=== PATIENT | male | born 1960 | race Caucasian/White ===

== ENCOUNTER 2017-11-28 17:10 | Emergency (ER) | payer SELFPAY, OTHER | END 2017-11-28 19:13 | disposition left against medical advice (07) | LOC: E/R 17:10 | DX: Z53.21 Procedure and treatment not carried out due to patient leaving prior to being seen by health care provider (principal) ==

== ENCOUNTER 2018-01-22 04:27 | Emergency (ER) | payer OTHER ==
[2018-01-22 05:44] LABS: URINE BLOOD (Dip) POC 1+ (NEGATIVE); URINE GLUCOSE (Dip) POC Negative (NEGATIVE); URINE KETONES (Dip) POC Negative (NEGATIVE); URINE LEUKOCYTE EST (Dip) POC Negative (NEGATIVE); URINE NITRITE (Dip) POC Negative (NEGATIVE); URINE TOTAL PROTEIN POC Trace (NEGATIVE)
[2018-01-22 05:51] LABS: ADD MAN DIFF? NO
[2018-01-22 06:25] LABS: ABNORMAL IP MESSAGE 1; BASOPHILS % 0.9 % (0.0-2.0); EOSINOPHILS # 0.3 10^3/ul (0.0-0.5); EOSINOPHILS % 6.2 % (0.0-7.0); HEMATOCRIT 31.6 % (42.0-52.0); HEMOGLOBIN 10.9 g/dl (14.0-18.0); LYMPHOCYTES # 1.3 10^3/ul (0.8-2.9); LYMPHOCYTES % 29.6 % (15.0-51.0); MEAN CORPUSCULAR HEMOGLOBIN 36.2 pg (29.0-33.0); MEAN CORPUSCULAR HGB CONC 34.5 g/dl (32.0-37.0); MEAN PLATELET VOLUME 11.7 fl (7.4-10.4); MONOCYTE # 0.4 10^3/ul (0.3-0.9); MONOCYTES % 9.7 % (0.0-11.0); NEUTROPHIL # 2.3 10^3/ul (1.6-7.5); NEUTROPHILS % 53.4 % (39.0-77.0); PLATELET COUNT 91 10^3/UL (140-415); POSITIVE DIFF @See below; RED BLOOD COUNT 3.01 10^6/ul (4.70-6.10); RED CELL DISTRIBUTION WIDTH 14.9 % (11.5-14.5)
[2018-01-22 06:25] LABS: WHITE BLOOD COUNT 4.2 10^3/ul (4.8-10.8)
[2018-01-22 06:37] LABS: INR 1.67; PARTIAL THROMBOPLASTIN TIME 38.3 Sec (25.0-35.0); PT RATIO 1.6
[2018-01-22 06:40] LABS: ALANINE AMINOTRANSFERASE 66 IU/L (13-69); ALBUMIN 2.4 g/dl (3.3-4.9); ALKALINE PHOSPHATASE 321 IU/L (42-121); ANION GAP 8 (8-16); ASPARTATE AMINO TRANSFERASE 86 IU/L (15-46); BILIRUBIN,INDIRECT 1.7 mg/dl (0-1.1); BILIRUBIN,TOTAL 1.7 mg/dl (0.2-1.3); BLOOD UREA NITROGEN 16 mg/dl (7-20); CARBON DIOXIDE 26 mmol/L (21-31); CHLORIDE 110 mmol/L (97-110); CREATINE KINASE 199 IU/L (23-200); CREATININE 0.75 mg/dl (0.61-1.24); GLUCOSE 109 mg/dl (70-220); POTASSIUM 4.1 mmol/L (3.5-5.1); SODIUM 140 mmol/L (135-144); TOTAL PROTEIN 7.2 g/dl (6.1-8.1)
[2018-01-22 06:51] LABS: CK INDEX 1.2; CK-MB 2.37 ng/ml (0.0-2.4); TROPONIN-I < 0.012 ng/ml (0.000-0.120)
[2018-01-22] MEDS: FUROSEMIDE 20 MG INJ IV (07:26)
[2018-01-22 07:49] LABS: AMMONIA 52 umol/l (9-30)
[2018-01-22] MEDS: LACTULOSE 30ML CUP PO (09:25)
== END 2018-01-22 09:40 | disposition home or self-care (01) ==
LOC: E/R 04:27
DX: E72.20 Disorder of urea cycle metabolism, unspecified (principal); K74.60 Unspecified cirrhosis of liver; I10 Essential (primary) hypertension; E11.9 Type 2 diabetes mellitus without complications
CPT/HCPCS: 71045; 80053; 81003; 82140; 82550; 82553; 84484; 85025; 85610; 85730; 93005; 96374; 99285-25

== ENCOUNTER 2018-02-04 15:23 | Inpatient (IN) | payer OTHER ==
[2018-02-04 17:26] LABS: ADD MAN DIFF? NO
[2018-02-04 17:29] LABS: WHITE BLOOD COUNT 4.9 10^3/ul (4.8-10.8)
[2018-02-04 17:29] LABS: ABNORMAL IP MESSAGE 1; BASOPHIL # 0.1 10^3/ul (0.0-0.1); EOSINOPHILS # 0.3 10^3/ul (0.0-0.5); EOSINOPHILS % 6.5 % (0.0-7.0); HEMATOCRIT 31.3 % (42.0-52.0); HEMOGLOBIN 10.7 g/dl (14.0-18.0); LYMPHOCYTES % 20.2 % (15.0-51.0); MEAN CORPUSCULAR HEMOGLOBIN 36.3 pg (29.0-33.0); MEAN CORPUSCULAR HGB CONC 34.2 g/dl (32.0-37.0); MEAN CORPUSCULAR VOLUME 106.1 fl (82.0-101.0); MEAN PLATELET VOLUME 10.5 fl (7.4-10.4); MONOCYTE # 0.5 10^3/ul (0.3-0.9); MONOCYTES % 10.2 % (0.0-11.0); NEUTROPHILS % 61.5 % (39.0-77.0); PLATELET COUNT 90 10^3/UL (140-415); POSITIVE DIFF @See below; RED BLOOD COUNT 2.95 10^6/ul (4.70-6.10); RED CELL DISTRIBUTION WIDTH 14.6 % (11.5-14.5)
[2018-02-04 17:51] LABS: AMMONIA 96 umol/l (9-30)
[2018-02-04 17:53] LABS: ALANINE AMINOTRANSFERASE 62 IU/L (13-69); ALBUMIN 2.3 g/dl (3.3-4.9); ALKALINE PHOSPHATASE 303 IU/L (42-121); ANION GAP 6 (8-16); ASPARTATE AMINO TRANSFERASE 75 IU/L (15-46); BILIRUBIN,INDIRECT 1.8 mg/dl (0-1.1); BILIRUBIN,TOTAL 1.8 mg/dl (0.2-1.3); BLOOD UREA NITROGEN 14 mg/dl (7-20); CALCIUM 7.6 mg/dl (8.4-10.2); CARBON DIOXIDE 27 mmol/L (21-31); CHLORIDE 110 mmol/L (97-110); CREATININE 0.82 mg/dl (0.61-1.24); GLUCOSE 133 mg/dl (70-220); LIPASE 344 U/L (23-300); POTASSIUM 3.9 mmol/L (3.5-5.1); SODIUM 139 mmol/L (135-144); TOTAL PROTEIN 6.9 g/dl (6.1-8.1)
[2018-02-04 18:04] LABS: TROPONIN-I < 0.012 ng/ml (0.000-0.120)
[2018-02-04 18:12] LABS: ADD UMIC YES; UR ASCORBIC ACID NEGATIVE (NEGATIVE); UR BILIRUBIN (Dip) NEGATIVE (NEGATIVE); UR BLOOD (Dip) 2+ mg/dL (NEGATIVE); UR CLARITY CLEAR (CLEAR); UR COLOR AMBER (YELLOW); UR GLUCOSE (Dip) NEGATIVE (NEGATIVE); UR KETONES (Dip) NEGATIVE (NEGATIVE); UR LEUKOCYTE ESTERASE (Dip) NEGATIVE Leu/ul (NEGATIVE); UR NITRITE (Dip) NEGATIVE (NEGATIVE); UR RBC 14 /HPF (0-5); UR SPECIFIC GRAVITY (Dip) > 1.060 (1.003-1.030); UR TOTAL PROTEIN (Dip) NEGATIVE (NEGATIVE); UR UROBILINOGEN (Dip) 2+ mg/dL (NEGATIVE); UR WBC 0 /HPF (0-5)
[2018-02-04] MEDS: LACTULOSE 30ML CUP PO ×2 (19:32→22:31)
[2018-02-04] MEDS ORDERED: NACL 0.9% 3 ML SYG IV (20:30)
[2018-02-04] MEDS ORDERED: ALBUTEROL/IPRATROPIUM (NEB) 3 ML AMP HHN (20:30)
[2018-02-04] MEDS ORDERED: RIBAVIRIN 200 MG PO (21:00)
[2018-02-04] MEDS: PROPRANOLOL 20 MG TAB PO (22:30)
[2018-02-04] MEDS: FUROSEMIDE 20 MG TAB PO (22:31)
[2018-02-04] MEDS: FAMOTIDINE 20 MG INJ IV (22:31)
[2018-02-05] MEDS: LACTULOSE 30ML CUP PO ×4 (05:07→21:03)
[2018-02-05 07:04] LABS: ADD MAN DIFF? NO
[2018-02-05 07:16] LABS: ABNORMAL IP MESSAGE 1; BASOPHILS % 0.8 % (0.0-2.0); EOSINOPHILS # 0.3 10^3/ul (0.0-0.5); EOSINOPHILS % 5.3 % (0.0-7.0); HEMATOCRIT 30.1 % (42.0-52.0); HEMOGLOBIN 10.3 g/dl (14.0-18.0); LYMPHOCYTES # 1.2 10^3/ul (0.8-2.9); LYMPHOCYTES % 24.8 % (15.0-51.0); MEAN CORPUSCULAR HEMOGLOBIN 35.6 pg (29.0-33.0); MEAN CORPUSCULAR HGB CONC 34.2 g/dl (32.0-37.0); MEAN CORPUSCULAR VOLUME 104.2 fl (82.0-101.0); MEAN PLATELET VOLUME 11.5 fl (7.4-10.4); MONOCYTE # 0.4 10^3/ul (0.3-0.9); MONOCYTES % 8.6 % (0.0-11.0); NEUTROPHIL # 2.9 10^3/ul (1.6-7.5); NEUTROPHILS % 60.3 % (39.0-77.0); PLATELET COUNT 93 10^3/UL (140-415); POSITIVE DIFF @See below; RED BLOOD COUNT 2.89 10^6/ul (4.70-6.10); RED CELL DISTRIBUTION WIDTH 14.2 % (11.5-14.5)
[2018-02-05 07:16] LABS: WHITE BLOOD COUNT 4.9 10^3/ul (4.8-10.8)
[2018-02-05 07:52] LABS: ALANINE AMINOTRANSFERASE 62 IU/L (13-69); ALBUMIN 2.1 g/dl (3.3-4.9); ALBUMIN/GLOBULIN RATIO 0.48; ALKALINE PHOSPHATASE 261 IU/L (42-121); ANION GAP 7 (8-16); ASPARTATE AMINO TRANSFERASE 71 IU/L (15-46); BLOOD UREA NITROGEN 12 mg/dl (7-20); CALCIUM 7.5 mg/dl (8.4-10.2); CARBON DIOXIDE 24 mmol/L (21-31); CHLORIDE 112 mmol/L (97-110); CREATININE 0.69 mg/dl (0.61-1.24); GLUCOSE 108 mg/dl (70-220); MAGNESIUM 1.8 mg/dl (1.7-2.5); PHOSPHORUS 3.5 mg/dl (2.5-4.9); POTASSIUM 3.9 mmol/L (3.5-5.1); SODIUM 139 mmol/L (135-144); TOTAL PROTEIN 6.4 g/dl (6.1-8.1)
[2018-02-05] MEDS: LOSARTAN 25 MG TAB PO (08:34)
[2018-02-05] MEDS: FUROSEMIDE 20 MG TAB PO ×2 (08:35→21:05)
[2018-02-05] MEDS: PROPRANOLOL 20 MG TAB PO ×2 (08:35→21:05)
[2018-02-05] MEDS: FAMOTIDINE 20 MG INJ IV ×2 (09:00→21:05)
[2018-02-05 10:49] LABS: AMMONIA 90 umol/l (9-30)
[2018-02-05] MEDS: INSULIN ASPART [NOVOLOG] 3 ML PEN SC ×3 (12:00→21:00)
[2018-02-05 12:12] LABS: HEMOGLOBIN A1C 4.7 % (0-5.9)
[2018-02-05] MEDS: EPCLUSA PO (15:42)
[2018-02-05] MEDS: [UNRECOGNIZED DRUG - REMARK] XX (22:00)
[2018-02-06] MEDS: LACTULOSE 30ML CUP PO ×4 (02:30→21:10)
[2018-02-06 05:40] LABS: ADD MAN DIFF? NO; BASOPHIL # 0.1 10^3/ul (0.0-0.1); BASOPHILS % 1.1 % (0.0-2.0); EOSINOPHILS # 0.3 10^3/ul (0.0-0.5); EOSINOPHILS % 5.6 % (0.0-7.0); HEMATOCRIT 30.7 % (42.0-52.0); HEMOGLOBIN 10.6 g/dl (14.0-18.0); LYMPHOCYTES # 1.3 10^3/ul (0.8-2.9); LYMPHOCYTES % 26.9 % (15.0-51.0); MEAN CORPUSCULAR HEMOGLOBIN 36.8 pg (29.0-33.0); MEAN CORPUSCULAR HGB CONC 34.5 g/dl (32.0-37.0); MEAN CORPUSCULAR VOLUME 106.6 fl (82.0-101.0); MEAN PLATELET VOLUME 11.3 fl (7.4-10.4); MONOCYTE # 0.4 10^3/ul (0.3-0.9); MONOCYTES % 8.4 % (0.0-11.0); NEUTROPHIL # 2.7 10^3/ul (1.6-7.5); NEUTROPHILS % 57.6 % (39.0-77.0); PLATELET COUNT 101 10^3/UL (140-415); RED BLOOD COUNT 2.88 10^6/ul (4.70-6.10); RED CELL DISTRIBUTION WIDTH 14.4 % (11.5-14.5)
[2018-02-06 05:40] LABS: WHITE BLOOD COUNT 4.7 10^3/ul (4.8-10.8)
[2018-02-06] MEDS: [UNRECOGNIZED DRUG - REMARK] XX ×2 (06:00→13:46)
[2018-02-06 06:15] LABS: AMMONIA 66 umol/l (9-30)
[2018-02-06 06:18] LABS: ANION GAP 6 (8-16); BLOOD UREA NITROGEN 14 mg/dl (7-20); CALCIUM 7.7 mg/dl (8.4-10.2); CARBON DIOXIDE 24 mmol/L (21-31); CHLORIDE 115 mmol/L (97-110); GLUCOSE 99 mg/dl (70-220); POTASSIUM 4.1 mmol/L (3.5-5.1); SODIUM 141 mmol/L (135-144)
[2018-02-06 06:19] LABS: CREATININE 0.75 mg/dl (0.61-1.24)
[2018-02-06 06:21] LABS: INR 1.96; PARTIAL THROMBOPLASTIN TIME 40.6 Sec (25.0-35.0); PROTIME 22.8 Sec (11.9-14.9); PT RATIO 1.8
[2018-02-06 07:20] LABS: FOLATE 13.8 ng/ml (2.8-20.0)
[2018-02-06] MEDS: INSULIN ASPART [NOVOLOG] 3 ML PEN SC ×4 (08:00→21:00)
[2018-02-06] MEDS: FUROSEMIDE 20 MG TAB PO ×2 (08:06→21:09)
[2018-02-06] MEDS: FAMOTIDINE 20 MG INJ IV ×2 (08:06→21:10)
[2018-02-06] MEDS: PROPRANOLOL 20 MG TAB PO ×2 (08:07→21:13)
[2018-02-06] MEDS: LOSARTAN 25 MG TAB PO (08:11)
[2018-02-06] MEDS: EPCLUSA PO (08:56)
[2018-02-06] MEDS ORDERED: RIBAVIRIN 200 MG PO (16:00)
[2018-02-06] MEDS: RIBAVIRIN 200 MG PO (17:31)
[2018-02-07] MEDS: LACTULOSE 30ML CUP PO ×2 (02:30→08:20)
[2018-02-07 05:40] LABS: ADD MAN DIFF? NO
[2018-02-07 05:42] LABS: ABNORMAL IP MESSAGE 1; BASOPHIL # 0.1 10^3/ul (0.0-0.1); BASOPHILS % 1.2 % (0.0-2.0); EOSINOPHILS # 0.2 10^3/ul (0.0-0.5); EOSINOPHILS % 5.1 % (0.0-7.0); HEMATOCRIT 29.9 % (42.0-52.0); HEMOGLOBIN 10.1 g/dl (14.0-18.0); LYMPHOCYTES # 1.3 10^3/ul (0.8-2.9); LYMPHOCYTES % 29.4 % (15.0-51.0); MEAN CORPUSCULAR HEMOGLOBIN 35.6 pg (29.0-33.0); MEAN CORPUSCULAR HGB CONC 33.8 g/dl (32.0-37.0); MEAN CORPUSCULAR VOLUME 105.3 fl (82.0-101.0); MEAN PLATELET VOLUME 11.7 fl (7.4-10.4); MONOCYTE # 0.5 10^3/ul (0.3-0.9); MONOCYTES % 10.9 % (0.0-11.0); NEUTROPHIL # 2.3 10^3/ul (1.6-7.5); NEUTROPHILS % 53.2 % (39.0-77.0); PLATELET COUNT 85 10^3/UL (140-415); POSITIVE DIFF @See below; RED BLOOD COUNT 2.84 10^6/ul (4.70-6.10); RED CELL DISTRIBUTION WIDTH 13.9 % (11.5-14.5)
[2018-02-07 05:42] LABS: WHITE BLOOD COUNT 4.3 10^3/ul (4.8-10.8)
[2018-02-07 06:13] LABS: AMMONIA 54 umol/l (9-30)
[2018-02-07 06:16] LABS: ANION GAP 7 (8-16); BLOOD UREA NITROGEN 16 mg/dl (7-20); CALCIUM 7.6 mg/dl (8.4-10.2); CARBON DIOXIDE 26 mmol/L (21-31); CHLORIDE 110 mmol/L (97-110); CREATININE 0.83 mg/dl (0.61-1.24); GLUCOSE 96 mg/dl (70-220); SODIUM 139 mmol/L (135-144)
[2018-02-07] MEDS: INSULIN ASPART [NOVOLOG] 3 ML PEN SC ×2 (08:00→12:00)
[2018-02-07] MEDS: RIBAVIRIN 200 MG PO ×2 (08:19→12:23)
[2018-02-07] MEDS: FAMOTIDINE 20 MG INJ IV (08:20)
[2018-02-07] MEDS: LOSARTAN 25 MG TAB PO (08:21)
[2018-02-07] MEDS: PROPRANOLOL 20 MG TAB PO (08:21)
[2018-02-07] MEDS: FUROSEMIDE 20 MG TAB PO (08:22)
[2018-02-07] MEDS: EPCLUSA PO (10:21)
== END 2018-02-07 14:25 | disposition home or self-care (01) | DRG 443 ==
LOC: FTE 15:23 → 2NE 20:22
DX: K72.90 Hepatic failure, unspecified without coma (principal); B19.20 Unspecified viral hepatitis C without hepatic coma; K74.60 Unspecified cirrhosis of liver; I10 Essential (primary) hypertension; E11.9 Type 2 diabetes mellitus without complications; D64.89 Other specified anemias
CPT/HCPCS: 36415; 71045; 76705; 80048; 80053; 81001; 82140; 82607; 82746; 82962; 83036; 83690; 83735; 84100; 84484; 85025; 85610; 85730; 93005; 99285-25